=== PATIENT | male | born 1985 ===

== ENCOUNTER → 2021-06-08 12:13 | Outpatient (CLI) | payer OTHER, MEDICAID, SELFPAY ==
[2021-06-09 15:55] LABS: HIV 1 & 2 Ab/Ag 4th Gen Combo NEGATIVE (NEGATIVE)
== END ==
PROVIDERS: PCP Physician Assistant; Visit Provider Physician Assistant
DX: Z72.51 High risk heterosexual behavior (principal)
CPT/HCPCS: 87389